=== PATIENT | male | born 1975 | race Caucasian/White ===

== ENCOUNTER → 2019-10-16 15:00 | Outpatient (CLI) | payer BC, SELFPAY | PROVIDERS: Visit Provider Nurse Practitioner | DX: B35.1 Tinea unguium (principal) | CPT/HCPCS: 87102; 87206; 87220 ==

== ENCOUNTER → 2023-06-04 06:13 | Outpatient (CLI) | payer OTHER, SELFPAY ==
--- NOTE | 2023-06-04 | CA_ITS ---
APPROVED REPORT Exam: Exercise Treadmill Technologist: Aurea Guy, Ht: 5 ft 8 in Wt: 169 lbs BSA: 1.90 m2 HR: 65 bpm BP: 129/91 mmHg Rhythm: SR Medical History Medical History: Smoking Medications: Protonix,,,,, LoTREL,,,,, Allergies: ATORVASTATIN Cardiac Risk Factors: Smoking Stress Test Details Test: [place] HR Resting HR: 74 bpm Max Heart Rate (APMHR): 171 bpm Max HR Achieved: 166 bpm Target HR (85% APMHR): 145 bpm % of APMHR: 97 Recovery HR: 97 bpm HR response to stress: Normal HR response to stress BP Resting BP: 129.0/91 mmHg Max BP: 170/80 mmHg Recovery BP: 125.0/77.0 mmHg BP response to stress: Normal blood pressure response to stress. ECG Resting ECG: Normal sinus rhythm, nonspecific ST abnormalities in the inferior leads Stress EC mm upsloping ST depression Arrhythmia: PACs Recovery ECG: Return to baseline within 3 minutes of recovery Recovery Arrhythmia: None Clinical Exercise duration: 10:59 min Highest Stage Achieved: Exercise capacity: 12.8 METs Overall Exercise Capacity for Age: Good Stress ECG Conclusion The patient was able to exercise for 10 minutes, 59 seconds. He achieved a total of 12.8 METS. He has good exercise capacity compared to age and sex matched peers. He has normal HR and BP response to exercise. MAX HR: 166 % OF PM: 9 MAX BP: 170/80 METS: 12.8 TEST STOPPED DUE TO: LEG FATIGUE PT HAD DYSPNEA, LIGHT HEADEDNESS AND LEG FATIGUE PACS 1MM UPSLOPING ST DEPRESSION AT PEAK STRESS CONCLUSION GOOD EXERCISE CAPACITY POSSIBLE ISCHEMIA IS PRESENT ON STRESS ECG MYOVIEW IMAGES ARE REPORTED SEPARATELY Test Summary REST . . . . . . . Standing REST . . . . . . . Sitting REST 08:00 0.0 1.2 74 . 129/ 91 . . Stage 1 01:00 10.0 1.7 93 . . . . Stage 1 02:00 10.0 1.7 97 . 125/ 80 . . Stage 1 03:00 10.0 1.7 96 . 125/ 80 . . Stage 2 01:00 12.0 2.5 103 . . . . Stage 2 02:00 12.0 2.5 109 . . . . Stage 2 03:00 12.0 2.5 107 . 140/ 82 . . Stage 3 01:00 14.0 3.4 127 . . . . Stage 3 02:00 14.0 3.4 138 . . . . Stage 3 03:00 14.0 3.4 140 . 152/ 92 . . Stage 4 . . . . . . . Myoview Injected Stage 4 01:00 16.0 4.2 155 . . . . Stage 4 01:59 16.0 4.2 165 . . . Stop exercise at 10:59 RECOVERY 01:00 0.0 0.0 135 . 170/ 80 . . RECOVERY 02:00 0.0 0.0 110 . 170/ 80 . . RECOVERY 03:00 0.0 0.0 101 . 156/ 84 . . RECOVERY 04:00 0.0 0.0 101 . 148/ 80 . . RECOVERY 05:00 0.0 0.0 96 . 131/ 82 . . RECOVERY 06:00 0.0 0.0 97 . 131/ 82 . . RECOVERY 06:19 0.0 0.0 100 . 125/ 77 . . Electronically signed by : Rosalinda Avina, 06/04/2023 11:46:16
--- NOTE | 2023-06-04 06:28 | NM_ITS ---
APPROVED REPORT Exam: Nuclear Stress Test Indication: chest pain..soa Patient Location: Outpatient Stress Tech: Aurea Guy [place] Tech:Zari Arteaga ESVINSandro RT(R)(N) Ht: 5 ft 8 in Wt: 187 lbs HR: 74 bpm BP: 129/91 mmHg BSA: 1.99 m2 Rhythm: NSR TID: 0.87 BMI: 28.4 History: chest pain..soa Procedure: Patient exercised on [place] protocol 10:59 minutes and sec, resting heart rate 74 bpm, resting blood pressure 129/91 mmHg, with exercise maximum heart rate achived was 168 bpm which is 97 % of the maximum predicted heart rate and blood pressure was 170/80 mmHg. Test was stopped due to fatigue. Patient denied any complaint of chest pain. Patient has good exercise capacity, achieved 12.8 METs of workload on treadmill, the blood pressure response to exercise was normal. Cardiac Stress and Resting SPECT Images: Cardiac Stress and Resting SPECT images were obtained using technetium 99m Myoview 30.0 mCi stress and 10.32 mCi at rest. This is a technically difficult study due to significant overlap between overlying soft tissue and cardiac borders. This may affect the diagnostic interpretation of the study findings. Resting and stress imaging in both supine and prone positions demonstrate medium sized, mild, partially reversible perfusion defect in the basal to mid anterior LV wall. There is also medium sized, moderate, reversible perfusion defect in the basa to mid inferior wall. Gated imaging demonstrates normal global LV systolic function. There is mild hypokinesis in the basal inferior and basal anterior LV wall. LVEF is calculated at 59%. Conclusion: Technically difficult study due to significant overlap between overlying soft tissue and cardiac borders. This may affect the diagnostic interpretation of the study findings. Medium sized, mild, partially reversible perfusion defect in the basal to mid anterior LV wall. There is also medium sized, moderate, reversible perfusion defect in the basa to mid inferior wall. Findings are suggestive of partially reversible ischemia. Gated imaging demonstrates normal global LV systolic function. There is mild hypokinesis in the basal inferior and basal anterior LV wall. LVEF is calculated at 59%. Electronically signed by : Rosalinad Avina, 06/04/2023 11:51:17
== END ==
PROVIDERS: PCP Nurse Practitioner Family; Visit Provider Physician Assistant
DX: R06.00 Dyspnea, unspecified (principal); R07.89 Other chest pain; R42 Dizziness and giddiness; E66.3 Overweight; R94.31 Abnormal electrocardiogram [ECG] [EKG]
CPT/HCPCS: 78452; 93017; 93306; A9502

== ENCOUNTER → 2023-06-11 09:33 | Outpatient (CLI) | payer OTHER, SELFPAY ==
[2023-06-11 10:02] LABS: Basophils % 0.5 % (0.1-2.0); Eosinophils # 0.2 K/mm3 (0.0-0.4); Eosinophils % 2.2 % (0.1-12.0); Hematocrit 47.5 % (42.0-52.0); Hemoglobin 15.9 g/dL (14.1-18.0); Lymphocytes # 2.3 K/mm3 (0.7-4.5); Lymphocytes % 29.7 % (10-50); Mean Corpuscular HGB Conc 33.6 g/dL (31.8-35.4); Mean Corpuscular Hemoglobin 28.8 pg (27.0-31.2); Mean Corpuscular Volume 85.7 fl (80-94); Mean Platelet Volume 7.9 fl (7.4-10.4); Monocytes # 0.6 K/mm3 (0.1-1.0); Monocytes % 7.9 % (1.7-9.3); Neutrophils # 4.5 K/mm3 (1.8-7.8); Neutrophils % 59.8 % (37.0-80.0); Platelet Count 219 K/mm3 (142-424); Red Blood Count 5.54 M/mm3 (4.60-6.20); Red Cell Distribution Width 13.6 % (11.5-17.5); White Blood Count 7.6 K/mm3 (4.8-10.8)
[2023-06-11 10:30] LABS: Chloride 101 mmol/L (98-107)
[2023-06-11 10:31] LABS: Potassium 4.4 mmoL/L (3.5-5.1); Sodium 140 mmol/L (136-145)
[2023-06-11 10:33] LABS: Alanine Aminotransferase 30 U/L (12-78); Anion Gap 10.4 mEq/L (5-15); Aspartate Amino Transferase 24 U/L (17-59); Bilirubin,Unconjugated 0.2 mg/dL (0.0-1.1); Blood Urea Nitrogen 24 mg/dl (9-20); Carbon Dioxide 33 mmol/L (22.0-30.0); Estimated Glomerular Filt Rate 71 ml/min (>60); GFR (African American) 86 ML/MIN (>60)
[2023-06-11 10:34] LABS: Albumin Level 4.5 g/dl (3.5-5.0); Alkaline Phosphatase 75 U/L (38-126); Bilirubin,Direct 0.2 mg/dl (0.0-0.4); Bilirubin,Indirect 0.2 mg/dL (0.0-0.9); Bilirubin,Total 0.4 mg/dl (0.2-1.3); Chol/HDL Ratio 8.3 (1-3.5); Cholesterol 233 mg/dl (140-200); Glucose 99 mg/dl (74-100); HDL Cholesterol 28 mg/dl (40-60); Total Protein,Serum 7.3 g/dl (6.3-8.2); Triglycerides 392 mg/dl (30-150); VLDL Cholesterol 78 mg/dL (0-40)
[2023-06-11 10:45] LABS: Direct LDL Cholesterol 148.26 mg/dL (100-129)
[2023-06-11 11:04] LABS: Thyroid Stimulating Hormone 1.25 uIU/mL (0.465-4.68)
[2023-06-11 11:07] LABS: Free T4 (Free Thyroxine) 0.79 ng/dl (0.78-2.19)
== END ==
PROVIDERS: Physician Assistant; PCP Nurse Practitioner Family; Visit Provider Nurse Practitioner
DX: R06.00 Dyspnea, unspecified (principal); R07.89 Other chest pain; R42 Dizziness and giddiness; I11.9 Hypertensive heart disease without heart failure; E66.3 Overweight; R94.31 Abnormal electrocardiogram [ECG] [EKG]; I63.9 Cerebral infarction, unspecified; E11.9 Type 2 diabetes mellitus without complications
CPT/HCPCS: 36415; 80048; 80061; 80076; 84439; 84443; 85025

== ENCOUNTER 2023-06-25 10:21 | Day surgery (SDC) | payer OTHER, SELFPAY ==
[2023-06-25] VITALS (13 sets, daily range): BP systolic 102–146; BP diastolic 69–91; PULSE 55–74; RESP 16–20; TEMP 36.1; O2SAT 92–98; BMI 26.4
--- NOTE | 2023-06-25 07:08 | IR_ITS ---
APPROVED REPORT Patient Location: Outpatient PROCEDURES Left heart catheterization Left ventriculogram Selective coronary angiogram INDICATION Abnormal Myoview, Angina pectoris, Informed consent was obtained prior to the procedure. COMPLICATIONS None Estimated Blood Loss: Less than 10 mls TECHNIQUE One percent lidocaine used to anesthetize the right anterior aspect of the wrist. The right radial artery was accessed via the Seldinger technique. A 6 Naur[place] sheath was placed in the right radial artery. 2.5 mg of Verapamil, 800 mcg of nitroglycerin, 1mg Lidocaine and 5000 U Heparin were given through the arterial sheath. The papa catheter was also used to perform left heart catheterization, left ventriculogram and selective coronary angiogram. At the end of the procedure the sheath was removed good hemostasis was achieved using Traclet band, patient was transferred to the postop holding area in stable condition. ANGIOGRAPHIC RESULTS The left main artery Normal The left anterior descending artery Normal The circumflex artery Dominant normal The right coronary artery Normal The ARDON ventriculogram reveals Normal 65% The left ventricular end-diastolic pressure 10 mmHg IMPRESSION Normal coronary arteries Normal ejection fraction Normal left ventricular end-diastolic pressure PLAN 1. Evaluation of noncardiac symptoms Electronically signed by : Ford Wilkins MD 06/25/2023 12:32:21
== END 2023-06-25 14:57 | disposition home or self-care (01) ==
PROVIDERS: PCP Nurse Practitioner Family; Visit Provider Internal Medicine
DX: I20.9 Angina pectoris, unspecified (principal); R94.31 Abnormal electrocardiogram [ECG] [EKG]; R94.39 Abnormal result of other cardiovascular function study; Z87.891 Personal history of nicotine dependence
CPT/HCPCS: 93458; 99152; C1725; C1769; J1644

== ENCOUNTER 2025-07-27 07:07 | Outpatient (CLI) | payer OTHER, SELFPAY ==
--- OUTSIDE RECORDS SUMMARY | 2025-07-27 07:11 | XMS_ITS | Referral Summary ---
Author Organization [facility] ([place], [place], [place], [place]) Address [address] [place] [address] Care Team Providers Care Test Carrier Name Role Phone Unavailable Primary Care Provider Unavailabl e Social History Tobacco Use Types Packs/Day Years Used Date Smoking Tobacco: Never Assessed Sex and Gender Information Value Date Recorded Sex Assigned at Male 05/09/2022 8:55 PM CDT Legal Sex Male 8:55 PM CDT Gender Identity Male 05/09/2022 8:55 PM CDT Sexual Orientation Not on file Plan of Treatment Not on file
--- OUTSIDE RECORDS SUMMARY | 2025-07-27 07:11 | XMS_ITS | Clinical Summary ---
Author Organization [facility] Address [address] [place], [place] [address] Care Team Providers Care Accountant Controller Name Role Phone Lucia Jefferson APRN Primary Care Provider [phone] Allergies Active Allergy Reactions Criticality Noted Date Comments Pravastatin Other (See Comments) 05/13/2015 Kidney stone Medications ibuprofen (MOTRIN) 800 mg tablet Take 1 Tab by mouth every 8 hours as needed for Pain. 60 Tab 0 12/10/2014 Active ergocalciferol (ERGOCALCIFEROL) 50,000 unit Capsule Take 1 Cap by mouth every 7 days. 12 Cap 1 12/24/2014 Active Evarts-3 Fatty Acids-Vitamin E (FISH OIL) 1,000 mg CapsuleIndication s:Mixed dyslipidemia Take 1 Cap by mouth daily. 0 12/09/2015 Active Active Problems Problem Noted Date Diagnosed Date Kidney stone 05/13/2015 Eczema 12/10/2014 SANDI (obstructive sleep apnea) 12/10/2014 High triglycerides 12/10/2014 Athlete's foot 12/10/2014 Family History Medical History Relation Name Comments Stroke Father mini stroke(onc e) Relation Name Status Comments Father Social History Tobacco Use Types Packs/Day Years Used Date Smoking Tobacco: Former Comments:smoked very little in early 20's Alcohol Use Standard Drinks/Week Comments No 0 (1 standard drink = 0.6 oz pur e alcohol) Sex and Gender Information Value Date Recorded Sex Assigned at Not on file Legal Sex Male 12:13 PM EST Gender Identity Not on file Sexual Orientation Not on file Last Filed Vital Signs Vital Sign Reading Time Taken Comments Blood Pressure 128/94 12/09/2015 2:25 PM EST right 126/90 Pulse 92 12/09/2015 2:25 PM EST Temperature 36.2 C (97.1 F) 10/28/2015 4:11 PM EST Respiratory Rate - - Oxygen Saturation 96% 10/28/2015 4:1 1 PM EST Inhaled Oxygen Concentration - - Weight 83.6 kg (184 lb 6.4 oz) 12/09/19 16 2:25 PM EST Height 174 cm (5' 8.5 ) 12/09/2015 2:25 PM EST Body Mass Index 27.63 12/09/2015 2:25 PM EST Plan of Treatment Health Maintenance Due Date Last Done Comments Cologuard 1973 Colonoscopy 1973 Colorectal Cancer Screening 1973 FIT 1973 Tetanus Vaccination (Every 1 0 Years) 1991 Lipid Monitoring 05/13/2016 05/13/2015, 12/2014, 12/18/2014 Pneumococcal Vaccine: 50+ Ye ars (1 of 1 - PCV) 2023 Zoster-RZV(Shingrix) (1 of 2) 2023 Depression Screening 11/12/2024 COVID-19 Vaccine (1 - 2023-2 5 season) 2025 Influenza Vaccination (#1) 2025 Lipid Screening Discontinued 05/13/2015, 12/2014, 05/13/2015, Additional history exists Procedures Procedure Name Priority Date/Time Associated Diagnosis Comments LIPID PROFILE Routine 05/13/2015 4:35 PM EDT Other and unspecified hyperlipidemia High triglycerides from Last 3 Months or Most Recently Relevant to Health Maintenance Results * (ABNORMAL) LIPID PROFILE (05/13/2015 4:35 PM EDT) Chol/HDL Ratio 7.5(H) 0 - 5 [facility] Cholesterol 179 125 - 199 mg/dL [facility] Comment: TOTAL CHOLESTEROL INTERPRETATION: Less than 200 mg/dL Desireable 200-239 mg/dL Borderline Greater or Equal to 240 mg/dL High LDL Calculated See Note 0 - 100 mg/dL [facility] Comment: LDL CHOLESTEROL INTERPRETATION: Less than 100 mg/dL Optimal 100-129 mg/dL Near optimal/above optimal 130-159 mg/dL Borderline High 160-189 mg/dL High Greater or Equal to 190 mg/dL Very HighLDL calculation is invalid because the triglyceride level is equal to or greater than 400 mg/dl. HDL 24(L) 40 - 180 mg/dL [facility] Comment: HDL CHOLESTEROL INTERPRETATION: Less than 40 mg/dL Low Greater than 60 mg/dL Desirable Triglycerides 468(H) 0 - 150 mg/dL [facility] Comment: TOTAL TRIGLYCERIDE INTERPRETATION: Less than 150 mg/dL Normal 150-199 mg/dL Borderline HIgh 200-499 mg/dL High Greater or Equal to 500 mg/dL Very High Plasma 05/13/2015 4:35 PM EDT 05/13/2015 7:38 PM EDT Narrative [facility] - 05/13/2015 8:25 PM EDT Has the patient fasted?->Yes us Jamia Cummins NP CHEMISTRY ORDERABLES Final Result Performing Organization Address City/State/[facility] Co de Phone Number [facility] [address] [place] [address] from Last 3 Months or Most Recently Relevant to Health Maintenance Insurance [employer] Care Teams Accountant Controller Relationship Specialty Start Date End Date Lucia Jefferson APRN [address] [place] [address] PCP - General 09/11/24
--- OUTSIDE RECORDS SUMMARY | 2025-07-27 07:11 | XMS_ITS | Clinical Summary ---
Author Organization [facility] Address [address] [place], [place] [address] Phone Care Team Providers Care Electronic Resources Librarian Name Role Phone Aruna Pruitt MD, Roscoe Correia Primary Care Provider Allergies No known active allergies Medications pravastatin (PRAVACHOL) 20 mg Oral Tablet Take 40 mg by mouth daily. Active fluticasone (FLONASE) 50 mcg/actuation Nasl [place], SuspensionIndic ations:[place] an tube dysfunction, bilateral 1 [place] by Nasal route daily. 1 Bottle 2 7 Active Additional Information Patient not taking.Reason: Pt electing to not take the medication, Reported on 08/17/2021 naproxen sodium/pseudoep hedrin (ALEVE COLD AND SINUS ORAL) Take by mouth. Activ e ibuprofen (ADVIL) 200 mg Oral TabletIndicatio ns:pain Take 600 mg by mouth every 8 hours as needed for Pain. Indications: pain Active oxyCODONE (ROXICODONE) 5 mg Oral Tablet Take 1-2 Tablets by mouth every 4 hours as needed for Acute Pain (R52) for up to 30 doses. 30 Tablet 10/17/2021 2:36 PM EST Active Additional Information Patient not taking.Reported on 10/28/2021 ondansetron (ZOFRAN) 4 mg Oral Tablet Take 1 Tablet by mouth every 6 hours as needed for Nausea for up to 20 doses. 20 Tablet 2 10/17/2021 2:36 PM EST Active Additional Information Patient not taking.Reported on 10/28/2021 Active Problems Problem Noted Date Diagnosed Date Right inguinal hernia 09/22/2021 Overview (09/22/2021): Added automatically from request for surgery [id number] Allergic rhinitis 12/13/2015 SANDI (obstructive sleep apnea) 12/14/2014 Surgical History Surgery Date Site/Laterality Comments HERNIA REPAIR 09/12/2004 - 10/11/2004 Left Abram Whitley MD INGUINAL HERNIA REPAIR 10/17/2021 Right Robotic right inguinal hernia repair with mesh ; Surgeon: Abram Whitley MD; Location: [facility]; Service: Robotics Medical devices from this surgery are in the Medical Devices section. Medical History Medical History Date Comments High cholesterol Allergic rhinitis 12/13/2015 SANDI (obstructive sleep apnea) 12/14/2014 CP AP Family History Medical History Relation Name Comments Anesth Problems Neg Hx Relation Name Status Comments Father Alive Mother Alive Social History Tobacco Use Types Packs/Day Years Used Date Smoking Tobacco: Never Smokeless Tobacco: Never Alcohol Use Standard Drinks/Week Comments No 0 (1 standard drink = 0.6 oz pur e alcohol) Sex and Gender Information Value Date Recorded Sex Assigned at Not on file Legal Sex Male 10:38 PM EDT Gender Identity Not on file Sexual Orientation Not on file Obstetrics History Last Filed Vital Signs Vital Sign Reading Time Taken Comments Blood Pressure 146/98 10/28/2021 11:01 AM EST Pulse 79 10/28/2021 11:01 AM EST Temperature 36.7 C (98 F) 10/17/2021 3:48 PM EST Respiratory Rate 19 10/17/2021 3:48 PM EST Oxygen Saturation 98% 10/17/2021 3:48 PM EST Inhaled Oxygen Concentration - - Weight 78 kg (172 lb) 10/28/2021 11:01 AM EST Height 172.7 cm (5' 8 ) 10/28/2021 11:01 AM EST Body Mass Index 26.15 10/28/2021 11:01 AM EST Plan of Treatment Health Maintenance Due Date Last Done Comments Annual Wellness Exam 1976 Hepatitis B Vaccine (1 of 3 - 19+ 3-dose series) 1992 DTaP/TDaP/Td (1 - Tdap) 01/17/1997 01/16/1997 Cologuard 2018 Colon Cancer Screening 2018 Colonoscopy 2018 FIT 2018 Sigmoidoscopy 2018 Virtual Colonography 2018 Pneumococcal Vaccine 50+ (1 of 1 - PCV) 2023 Zoster (1 of 2) 2023 COVID-19 Vaccine (1 - 2023-2 5 season) 2025 Influenza Vaccine (#1) 2025 Meningococcal B Vaccine Aged Out No l onger eligible based on patient's age to complete this topic Goals Goal Patient Goal Type Associated Problems Recent Progress Patient-Stated? Author Maintain a healthy diet, exercise regularly and maintain an ideal body weight General No Wiggins, October R, RMA Medical Devices Implanted Type Area Foam Rubber Fabricator Device Identifier Shelf Expiration Date Model / Serial / Lot Mesh Surg Lrg 4x6in 3dmax Mid Antom Knit Contr Rt Nabsb Cross - [id number] Implanted:Qty: 1 on 10/17/2021 by Abram Whitley MD at [facility] Right: Groin CR BARD:DAVOL 07/09/2026 [id number] / / [id number] Insurance [employer] P[employer] ANGELA PPO Care Teams Electronic Resources Librarian Relationship Specialty Start Date End Date Roscoe Valdovinos Jr., MD PCP - General Family Medicine 12/06/11
--- OUTSIDE RECORDS SUMMARY | 2025-07-27 07:11 | XMS_ITS | Clinical Summary ---
Author Organization [facility] ([place], [place], [place], [place]) Address [address] [place] [address] Care Team Providers Care Senior Underwriter Name Role Phone Unavailable Primary Care Provider [...]
--- OUTSIDE RECORDS SUMMARY | 2025-07-27 07:11 | XMS_ITS | Encounter Summary ---
Author Organization [facility] Address [address] [place] [address] Care Team Providers Care Scrap Charger Name Role Phone Jamia Cummins NP Primary Care Provider [phone] Lucia Jefferson APRN Primary Care Provider Encounter Details Date Type Department Care Team (Late st Contact Info) Description 12/09/2015 Abstract [facility] Physicians - Heart & Vascular, [address] [place] [address] Rocio Anderson NCMA Social History Tobacco Use Types Packs/Day Years Used Date Smoking Tobacco: Former Comments:smoked very little in early 20's Alcohol Use Standard Drinks/Week Comments No 0 (1 standard drink = 0.6 oz pur e alcohol) Sex and Gender Information Value Date Recorded Sex Assigned at Not on file Legal Sex Male 12:13 PM EST Gender Identity Not on file Sexual Orientation Not on file documented as of this encounter Plan of Treatment Not on file documented as of this encounter Visit Diagnoses Not on filedocumented in this encounter Care Teams Scrap Charger Relationship Specialty Start Date End Date Jamia Cummins NP PCP - General Nurse Practitioner 12/05/13 09/10/24 Lucia Jefferson APRN [address] [address] PCP - General 09/11/24 documented as of this encounter
[2025-07-27 07:54] LABS: Hematocrit 42.7 % (42.0-52.0); Hemoglobin 14.8 g/dL (14.1-18.0); Immature Granulocytes % 0.2 %; Mean Corpuscular HGB Conc 34.7 g/dL (31.8-35.4); Mean Corpuscular Hemoglobin 30.0 pg (27.0-31.2); Mean Corpuscular Volume 86.6 fl (80-94); Nucleated Red Blood Cells % 0 %; Platelet Count 236 K/mm3 (142-424); Red Blood Count 4.93 M/mm3 (4.60-6.20); Red Cell Distribution Width-SD 40.2 fL; White Blood Count 6.1 K/mm3 (4.8-10.8)
[2025-07-27 08:34] LABS: Alanine Aminotransferase 41 U/L (12-78); Albumin Level 4.5 g/dl (3.5-5.0); Alkaline Phosphatase 73 U/L (38-126); Anion Gap 13.3 mEq/L (5-15); Aspartate Amino Transferase 31 U/L (17-59); Bilirubin,Direct 0.0 mg/dl (0.0-0.4); Bilirubin,Indirect 0.7 mg/dL (0.0-0.9); Bilirubin,Total 0.7 mg/dl (0.2-1.3); Bilirubin,Unconjugated 0.7 mg/dL (0.0-1.1); Blood Urea Nitrogen 25 mg/dl (9-20); Calcium 9.0 mg/dl (8.4-10.2); Carbon Dioxide 29 mmol/L (22.0-30.0); Chloride 103 mmol/L (98-107); Cholesterol 203 mg/dl (140-200); Creatinine,Serum 1.10 mg/dl (0.66-1.25); Estimated Glomerular Filt Rate 71 ml/min (>60); GFR (African American) 85 ML/MIN (>60); Glucose 98 mg/dl (74-100); HDL Cholesterol 25 mg/dl (40-60); Magnesium 1.9 mg/dl (1.6-2.3); Potassium 4.3 mmoL/L (3.5-5.1); Sodium 141 mmol/L (136-145); Total Protein,Serum 7.1 g/dl (6.3-8.2); Triglycerides 149 mg/dl (30-150)
[2025-07-27 08:51] LABS: Free T4 (Free Thyroxine) 0.96 ng/dl (0.78-2.19)
[2025-07-27 09:06] LABS: Thyroid Stimulating Hormone 1.77 uIU/mL (0.465-4.68)
== END 2025-07-27 23:59 | disposition home or self-care (01) ==
LOC: LAB 07:09
PROVIDERS: Visit Provider Physician Assistant
DX: R94.31 Abnormal electrocardiogram [ECG] [EKG] (principal); I10 Essential (primary) hypertension; R42 Dizziness and giddiness; R06.00 Dyspnea, unspecified; R07.89 Other chest pain
CPT/HCPCS: 36415; 80048; 80061; 80076; 83735; 84439; 84443; 85025